=== PATIENT | female | born 1950 | race Caucasian/White ===

== ENCOUNTER 2017-08-12 19:04 | Emergency (ER) | payer MEDICARE ==
[~2017-08-12] VITALS: Ht 160 cm; Wt 52.0 kg
[~2017-08-12 19:04] MED LIST: HYDR-3533 PO; LEVE250 PO; PROZ20CA11 PO; SUMA50 PO; VITA20002 PO
[2017-08-12 19:07] VITALS: BP 170/90; PULSE 84; RESP 16; TEMP 98; O2SAT 99
--- NOTE | 2017-08-12 19:12 | PD ---
Physical Exam Date Seen by Provider: Aug 12, 2017 Time Seen by Provider: 19:09 Narrative 67-year-old female presents the emergency department status post fall at 6:15 PM this evening. Patient fell while being seated in a restaurant and slipped and fell. Patient denies hitting her head or loss of consciousness. Patient fell onto her right side and now having severe pain in her right arm and decreased movement. Patient denies numbness or weakness in the hand, but has severe pain from the shoulder to her elbow on the right side. Pain is 10 over 10. Patient is allergic to penicillin. [facility] Medical Record Reviewed: Yes Supervised Visit with SHANNON: Yes Narrative Course Vital signs are stable. Right shoulder, right elbow, and right humerus x-ray are ordered. Patient awaiting bed placement. Condition: Stable Roger Solo Aug 12, 2017 19:11
[2017-08-12] MEDS ORDERED: IMIT50TA PO (19:16)
--- NOTE | 2017-08-12 19:49 | RADRPT ---
EXAM DATE/TIME: 08/12/2017 19:33 [facility] COMPARISON: No previous studies available for comparison. 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 SURGICAL HISTORY : Craniotomy. Removal of anaplastic astrocytoma of the right temporal lobe. Right wrist surgery. Tonsil lectomy. ENCOUNTER: Initial ACUITY: 1 day PAIN SCORE: 8/10 LOCATION: Right Shoulder FINDINGS: There is a fracture of the humeral head comminuted and extending subcapital without dislocation. CONCLUSION: Fracture of the subcapital humerus extending into the humeral head without dislocation Erasmo Herring MD on August 12, 2017 at 19:47 Board Certified Radiologist. This report was verified electronically.
--- NOTE | 2017-08-12 19:50 | RADRPT ---
EXAM DATE/TIME: 08/12/2017 19:34 [facility] COMPARISON: No previous studies available for comparison. 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 SURGICAL HISTORY : Craniotomy. Removal of anaplastic astrocytoma of the right temporal lobe. Right wrist surgery. Tonsil lectomy ENCOUNTER: Initial ACUITY: 1 day PAIN SCORE: 4/10 LOCATION: Right Elbow FINDINGS: Two view examination of the right elbow demonstrates no soft tissue swelling, joint effusion, fractur e or dislocation. Bony mineralization is normal. CONCLUSION: Unremarkable limited examination of the right elbow. Erasmo Herring MD on August 12, 2017 at 19:48 Board Certified Radiologist. This report was verified electronically.
[2017-08-12] MEDS ORDERED: HYDR-3533 PO (20:17)
--- NOTE | 2017-08-12 20:17 | PD ---
HPI Chief Complaint: Fall Time Seen by Provider: 19:29 Travel History International Travel<30 days: No Contact w/Intl Traveler<30days: No Traveled to known affect area: No History of Present Illness HPI This is a 67-year-old female who presents to the emergency department having had a fall at a restaurant where she tripped and she landed on her outstretched right arm. She has severe pain in her right shoulder, constant, throbbing, with no associated numbness or weakness. She denies any other injuries. She recently completed chemotherapy for malignant brain tumor. PFSH Past Medical History Anxiety: No Depression: Yes Cancer: No Cardiovascular Problems: No Cerebrovascular Accident: No Endocrine: No Genitourinary: No Headaches: Yes Immune Disorder: No Musculoskeletal: No Neurologic: Yes Psychiatric: Yes Reproductive: No Respiratory: No Immunizations Current: Yes Migraines: Yes (TAKES IMITREX. LAST ONE 1 MONTH AGO) Seizures: Yes Sickle Cell Disease: No Tetanus Vaccination: Unknown Influenza Vaccination: No Menopausal: Yes Past Surgical History Abdominal Surgery: No AICD: No Arteriovenous Shunt: No Cardiac Surgery: No Ear Surgery: No Endocrine Surgery: No Eye Surgery: No Genitourinary Surgery: No Gynecologic Surgery: No Insulin Pump: No Joint Replacement: No Oral Surgery: No Pacemaker: No Thoracic Surgery: No Other Surgery: Yes (CRANIOTOMY MAY 2016) Social History Alcohol Use: No Tobacco Use: No Substance Use: No Allergies-Medications (Allergen,Severity, Reaction): Coded Allergies: penicillin G (Unverified Allergy, Intermediate, RASH, 08/12/17) Reported Meds & Prescriptions Reported Meds & Active Scripts Active Reported Imitrex (Sumatriptan Succinate) 50 Mg Tab 50 Mg PO ONCE PRN If a satisfactory response has not been obtained at 2 hours, a second dose may be administered Review of Systems Except as stated in HPI: all other systems reviewed are Neg Physical Exam Narrative GENERAL:Well appearing, no acute distress SKIN: Focused skin assessment warm and dry. HEAD: Atraumatic. Normocephalic. EYES: Pupils equal and round. No injection or drainage. ENT: Moist mucous membranes NECK: Trachea midline. CARDIOVASCULAR: Regular rate and rhythm. No murmur appreciated. 2+ right radial pulse with normal capillary refill in the right hand. RESPIRATORY: Clear to auscultation. Breath sounds equal bilaterally. GASTROINTESTINAL: Abdomen soft, non-tender, nondistended. MUSCULOSKELETAL: Tender to palpation over the right proximal humerus. NEUROLOGICAL: Awake and alert. No obvious cranial nerve deficits. Moving all extremities. PSYCHIATRIC: Appropriate mood and affect; insight and judgment normal. Data Data Last Documented VS Vital Signs Date Time Temp Pulse Resp B/P (MAP) Pulse Ox O2 Delivery O2 Flow Rate FiO2 08/12/17 19:07 98.0 84 16 170/90 (116) 99 Room Air Orders Orders Ice/Cold Pack (08/12/17 19:12) Elbow, Limited (Ap&Lat) (08/12/17 19:12) Shoulder, Limited(2vws) (08/12/17 19:12) [facility] Medical Decision Making Medical Screen Exam Complete: Yes Emergency Medical Condition: Yes Differential Diagnosis Proximal humerus fracture, shoulder dislocation, elbow fracture, contusion Narrative Course This is a 67-year-old female who presents to the emergency department with pain in her right shoulder following a fall. She has a normal neurovascular exam. X -ray demonstrates a proximal humerus fracture. Patient will be placed in a sling and swath and referred to orthopedics as an outpatient. Diagnosis Primary Impression: Proximal humerus fracture Qualified Codes: S42.201A - Unspecified fracture of upper end of right humerus , initial encounter for closed fracture Referrals: [facility] Patient Instructions: General Instructions Additional Instructions: If you develop numbness, weakness or severe pain in your right arm return to the emergency room. Follow-up with orthopedics as an outpatient as soon as possible. Med/Other Pt SpecificInfo: Prescription(s) given Scripts Hydrocodone-Acetaminophen (Lortab) 5-325 Mg Tab 1 TAB PO Q6H Y for PAIN, #14 TAB 0 Refills Prov: Fatimah Harris MD 08/12/17 Disposition: 01 DISCHARGE HOME Condition: Stable Fatimah Harris MD Aug 12, 2017 20:17
[2017-08-12] MEDS ORDERED: ACETAMINOPHEN/HYDROcodone 325 MG/5 MG TAB PO ONE (20:30)
== END 2017-08-12 20:37 | disposition home or self-care (01) ==
LOC: NEPD 19:04
DX: S42.201A Unspecified fracture of upper end of right humerus, initial encounter for closed fracture (principal); W01.0XXA Fall on same level from slipping, tripping and stumbling without subsequent striking against object, initial encounter; Y92.511 Restaurant or cafe as the place of occurrence of the external cause
CPT/HCPCS: 29240; 73030; 73070